=== PATIENT | male | born 1955 | race Caucasian/White ===

== ENCOUNTER → 2018-05-05 | Outpatient (CLI) | payer OTHER ==
[~2018-05-05] MED LIST: ASPIRIN81 M1 PO; BASLE1 CRE TP; CLINDAMYCIN150 MG PO; COLACE100 MG PO; COREG6.25 MG PO; CORTISONE57 GM TP; COUMADIN10 M1 PO; DILTIAZEM ER120 MG PO; DIOVAN160 M2 PO; KEFLEX500 M1 PO; LANTUS SOLOS100 U/M1 SC; LASIX40 MG PO; LASIX80 MG PO; MASON NATURAL1000 IU PO; METFORMIN1000 MG PO; MONTELUKAST SOD10 MG PO; OXYCODONE5 M1 PO; PLAVIX75 M1 PO; POTASSIUM CHLO20 ME3 PO; PREDNISONE20 M1 PO; REFRESH OPTIVE10 M1 OP; VITAMIN D31000 IU PO; ZOCOR40 MG PO
== END | disposition home or self-care (01) ==
LOC: RESCLI 03:42
DX: Z12.11 Encounter for screening for malignant neoplasm of colon (principal); L97.912 Non-pressure chronic ulcer of unspecified part of right lower leg with fat layer exposed; M79.661 Pain in right lower leg; J84.10 Pulmonary fibrosis, unspecified; I11.0 Hypertensive heart disease with heart failure; I50.30 Unspecified diastolic (congestive) heart failure; E11.9 Type 2 diabetes mellitus without complications; G47.33 Obstructive sleep apnea (adult) (pediatric); I48.0 Paroxysmal atrial fibrillation; E66.01 Morbid (severe) obesity due to excess calories; I25.810 Atherosclerosis of coronary artery bypass graft(s) without angina pectoris; E78.5 Hyperlipidemia, unspecified; E55.9 Vitamin D deficiency, unspecified; Z99.81 Dependence on supplemental oxygen; Z79.899 Other long term (current) drug therapy; Z79.84 Long term (current) use of oral hypoglycemic drugs; Z87.891 Personal history of nicotine dependence; Z88.8 Allergy status to other drugs, medicaments and biological substances; Z76.89 Persons encountering health services in other specified circumstances